=== PATIENT | female | born 1940 | race Caucasian/White ===

== ENCOUNTER 2017-06-06 12:54 | Day surgery (SDC) | payer MEDICARE ==
[2017-05-31 07:07] VITALS: BP 150/81
[~2017-06-06] VITALS: Ht 157.5 cm; Wt 80.4 kg
[~2017-06-06 12:54] MED LIST: ASPI-515 PO; ATOR40TA PO; BUPIVACAINE/PF 0.5% ONE; CA C1TAB28 PO; LISI-170 PO; LISI1TAB7 PO; LOVA40TA2 PO; OMEG1CAP23 PO; OMEP-110 PO; POLY454P3 PO; SUCR1TAB PO
[2017-06-06] MEDS ORDERED: LACTATED RINGERS 1,000 ML IV SCH (13:13)
[2017-06-06] MEDS ORDERED: LIDOCAINE 1%, 2ML SQ PRN (13:30)
[2017-06-06] MEDS ORDERED: SILVER NITRATE STICK TP ONE (13:36)
[2017-06-06] MEDS ORDERED: BUPIVACAINE/PF 0.25% ONE (13:36)
[2017-06-06] MEDS ORDERED: EPINEPHRINE 1 MG/ML, 1ML ONE (13:36)
[2017-06-06] MEDS ORDERED: FENTANYL PF 250 MCG/5ML ONE (14:49)
[2017-06-06] MEDS ORDERED: DEXAMETHASONE 4 MG/ML, 1ML ONE (14:53)
[2017-06-06] MEDS ORDERED: ONDANSETRON 2MG/ML, 2ML ONE (14:53)
[2017-06-06] MEDS ORDERED: CEFAZOLIN 1,000 MG ONE (14:53)
[2017-06-06] MEDS ORDERED: PROPOFOL 10 MG/ML, 20ML ONE (14:53)
[2017-06-06] MEDS ORDERED: PROPOFOL 50 ML ONE (14:57)
[2017-06-06] MEDS ORDERED: HYDROmorphone 1 MG/ML, 1ML IV PRN (15:00)
[2017-06-06] MEDS ORDERED: PROMETHAZINE 25 MG/ML, 1ML IV PRN (15:00)
[2017-06-06] MEDS ORDERED: ONDANSETRON 2MG/ML, 2ML IVPush PRN (15:00)
[2017-06-06] MEDS ORDERED: FENTANYL PF 100 MCG/2ML IV PRN (15:00)
[2017-06-06] MEDS ORDERED: OXYcodone 5 MG/5 ML ORAL.SOL UDC PO PRN (15:00)
[2017-06-06] MEDS ORDERED: HYDROcodone/APAP 7.5-325MG/15ML UDC PO PRN (15:00)
[2017-06-06] MEDS ORDERED: ACETAMINOPHEN 325 MG TABLET PO PRN (15:00)
[2017-06-06] MEDS ORDERED: BUPIVACAINE/PF-EPI 0.25% 1:200K IM ONE (15:13)
[2017-06-06] MEDS ORDERED: ACETAMINOPHEN 650 MG/20.3 ML UDC ONE (15:49)
[2017-06-06] MEDS ORDERED: OXYcodone 5 MG/5 ML ORAL.SOL UDC ONE (15:50)
[2017-06-06] MEDS ORDERED: ONDANSETRON 2MG/ML, 2ML IV PRN (17:30)
[2017-06-06] MEDS ORDERED: OXYcodone/APAP 5/325MG TABLET PO PRN (17:30)
[2017-06-06] MEDS ORDERED: morphine SULFATE 10 MG/ML, 1ML IV PRN (17:30)
[2017-06-06 19:26] VITALS: BP 145/86
[2017-06-06] MEDS ORDERED: IBUPROFEN 600 MG TABLET PO SCH (21:00)
[2017-06-06] MEDS ORDERED: ATORVASTATIN 40 MG TABLET PO SCH (21:00)
[2017-06-07] MEDS ORDERED: ASPIRIN 81 MG TABLET EC PO SCH (06:00)
[2017-06-07] MEDS ORDERED: OMEPRAZOLE 20 MG CAPSULE.DR PO SCH (07:30)
[2017-06-07] MEDS ORDERED: MULTIVITAMIN 1 TABLET PO SCH (09:00)
[2017-06-07] MEDS ORDERED: OMEGA-3/FISH OIL CAPSULE PO SCH (09:00)
[2017-06-07] MEDS ORDERED: LISINOPRIL 20 MG TABLET PO SCH (09:00)
[2017-06-07] MEDS ORDERED: HYDROCHLOROTHIAZIDE 25 MG TABLET PO SCH (09:00)
[2017-06-07] MEDS ORDERED: CHOLECALCIFEROL 1,000 UNIT TABLET PO SCH (09:00)
== END 2017-06-06 19:40 | disposition home or self-care (01) ==
LOC: OUT 12:54 → 4NOR 17:16 → OUT 19:40
PROVIDERS: ATTEND Obstetrics & Gynecology
DX: N84.0 Polyp of corpus uteri (principal); N95.0 Postmenopausal bleeding; I10 Essential (primary) hypertension
CPT/HCPCS: 58558; 88305; J0171; J0690; J1100; J2405; J2704; J3010; J3490

== ENCOUNTER 2018-06-26 07:49 | Emergency (ER) | payer MEDICARE ==
[~2018-06-26] VITALS: Ht 157.5 cm; Wt 77.8 kg
[~2018-06-26 07:49] MED LIST changes: -BUPIVACAINE/PF 0.5% ONE
[2018-06-26] MEDS ORDERED: MORPHINE SULFATE 4 MG/ML, 1ML ONE (09:40)
[2018-06-26] MEDS ORDERED: ONDANSETRON 2MG/ML, 2ML ONE (09:40)
[2018-06-26] MEDS ORDERED: SODIUM CHLORIDE FLUSH 10ML SYR IVF ONE (10:00)
[2018-06-26] MEDS ORDERED: ONDANSETRON 2MG/ML, 2ML IVPush ONE (10:00)
[2018-06-26] MEDS ORDERED: MORPHINE SULFATE 4 MG/ML, 1ML IVPush PRN (10:00)
[2018-06-26 10:17] LABS: BASOPHILS # (AUTO) 0.02 x10^3/uL (0-0.1); BASOPHILS % (AUTO) 0 % (0-1); EOSINOPHILS # (AUTO) 0.08 x10^3/uL (0-0.4); EOSINOPHILS % (AUTO) 1 % (1-7); LYMPHOCYTES # (AUTO) 1.84 x10^3/uL (1-3.4); LYMPHOCYTES % (AUTO) 30 % (22-44); MD NO; MEAN CORPUSCULAR HEMOGLOBIN 29.1 pg (27.0-34.8); MEAN CORPUSCULAR HGB CONC 33.3 g/dL (32.4-35.8); MEAN CORPUSCULAR VOLUME 87.3 fL (80-100); MEAN PLATELET VOLUME 7.1 fL (7.4-10.4); MONOCYTES # (AUTO) 0.59 x10^3/uL (0.2-0.8); MONOCYTES % (AUTO) 10 % (2-9); NEUTROPHILS % (AUTO) 59 % (42-75); PLATELET COUNT 313 x10^3/uL (130-400); RED BLOOD COUNT 5.25 x10^6/uL (3.82-5.3)
[2018-06-26 10:24] LABS: CHLORIDE 107 mmol/L (98-107)
[2018-06-26 10:28] LABS: ALBUMIN 3.7 g/dL (3.4-5.0); ANION GAP 6 mmol/L (5-15); CALCIUM 8.4 mg/dL (8.5-10.1)
[2018-06-26 10:35] LABS: ALANINE AMINOTRANSFERASE 27 U/L (12-78); ALKALINE PHOSPHATASE 81 U/L (45-117); BILIRUBIN,TOTAL 0.5 mg/dL (0.2-1.0); CREATININE 0.89 mg/dL (0.55-1.02); TOTAL PROTEIN 7.4 g/dL (6.4-8.2); TROPONIN I < 0.015 ng/mL (0.000-0.045)
[2018-06-26 10:45] LABS: MICROSCOPIC AUTO
[2018-06-26 10:49] LABS: CULTURE INDICATED? NO
[2018-06-26] MEDS ORDERED: MAALOX/HYOSCYAMINE/LIDOCAINE 45 ML BTL PO ONE (11:00)
[2018-06-26] MEDS ORDERED: MAALOX/HYOSCYAMINE/LIDOCAINE 45 ML BTL ONE (11:01)
[2018-06-26] MEDS ORDERED: OMNIPAQUE 350 MG/ML, 100ML BOTTLE ONE (13:45)
[2018-06-26 14:48] VITALS: BP 135/80
== END 2018-06-26 15:09 | disposition home or self-care (01) ==
LOC: ED 10:25
DX: M25.551 Pain in right hip (principal); R10.9 Unspecified abdominal pain; R07.9 Chest pain, unspecified; I10 Essential (primary) hypertension; K21.9 Gastro-esophageal reflux disease without esophagitis; E78.5 Hyperlipidemia, unspecified; Z87.448 Personal history of other diseases of urinary system; Z87.891 Personal history of nicotine dependence
CPT/HCPCS: 36415; 71045; 74177; 80053; 81001; 83605; 83690; 84484; 85025; 93005; 96374; 96375; 99284; J2405; Q9967

== ENCOUNTER 2019-01-22 06:50 | Emergency (ER) | payer MEDICARE ==
[~2019-01-22] VITALS: Ht 157.5 cm; Wt 78.0 kg
--- NOTE | 2019-01-22 07:27 | NUR ---
PT PRESENTS WITH LEFT NECK AND SHOULDER PAIN THAT IS A 5/10 AND MUSCLE SPASMS. PT DENIES CHEST PAIN, RADIATING PAIN, OR NUMBNESS. PT REPORTS SHE ALSO THINKS SHE HAS A UTI. UA WILL BE OBTAINED. BIBI. WANG. CALL LIGHT WITHIN REACH.
[2019-01-22] MEDS ORDERED: ONDANSETRON ODT 4 MG PO ONE (07:30)
[2019-01-22] MEDS ORDERED: OXYcodone/APAP 5/325MG TABLET PO ONE (07:30)
[2019-01-22] MEDS ORDERED: ONDANSETRON ODT 4 MG ONE (07:47)
[2019-01-22] MEDS ORDERED: OXYcodone/APAP 5/325MG TABLET ONE (07:47)
--- NOTE | 2019-01-22 08:08 | NUR ---
PT IS INTERMITTENTLY DESATING DOWN TO APPROX 87%. I PLACED PT ON 1 L ON NC, HER O2 SAT IS STABLE AND IN THE HIGH 90'S. I IFORMED ELLIOTT THAT PT IS REQUIRING OXYGEN AND ALSO THAT SHE "THINKS I HAVE A UTI BECAUSE IT ZAPATA WHEN I PEE". HE IS PLACING ORDERS.
--- NOTE | 2019-01-22 08:12 | NUR ---
DAUGHTER MICHEAL AT BEDSIDE. PT REPORTS HER PAIN IS 3/10 AND "HAS IMPROVED".
[2019-01-22 08:51] LABS: MICROSCOPIC AUTO
[2019-01-22 08:53] LABS: CULTURE INDICATED? YES
[2019-01-22 09:28] VITALS: BP 112/62
--- NOTE | 2019-01-22 09:29 | NUR ---
PT RESTING IN BED AND DENIES ANY NEEDS AT THIS TIME. VSS. NAD. CALL LIGHT WITHIN REACH.
--- NOTE | 2019-01-22 09:32 | NUR ---
AWAITING MD RECHECK. PT AWARE.
--- NOTE | 2019-01-22 09:53 | NUR ---
Patient given discharge instructions and they have confirmed that they understand the instructions. Patient ambulatory with steady gait. Pain free at time of d/c. Daughter here to drive her home.
== END 2019-01-22 09:55 | disposition home or self-care (01) ==
LOC: ED 09:19
DX: M54.12 Radiculopathy, cervical region (principal); K21.9 Gastro-esophageal reflux disease without esophagitis; E78.5 Hyperlipidemia, unspecified; I10 Essential (primary) hypertension
CPT/HCPCS: 71046; 72125; 81001; 87086; 93005; 99284; Q0162

== ENCOUNTER → 2020-03-04 | Outpatient (CLI) | payer MEDICARE ==
[~2020-03-04] MED LIST changes: +LISI1TAB20 PO; -LISI1TAB7 PO; +REGADENOSON 0.4 MG/5 ML SYRINGE ONE
== END | disposition home or self-care (01) ==
LOC: RAD 11:50
PROVIDERS: ATTEND Family Medicine
DX: I25.9 Chronic ischemic heart disease, unspecified (principal); R06.02 Shortness of breath
CPT/HCPCS: 78452; 93017; A9502; J2785

== ENCOUNTER 2020-03-12 13:19 | Outpatient (CLI) | payer MEDICARE ==
[~2020-03-12 13:19] MED LIST changes: -REGADENOSON 0.4 MG/5 ML SYRINGE ONE
[2020-03-12] MEDS ORDERED: MULT-516 PO (14:08)
[2020-03-12] MEDS ORDERED: DICY20TA3 PO (14:08)
[2020-03-12] MEDS ORDERED: SUCR1TAB33 PO (14:08)
[2020-03-12] MEDS ORDERED: ASPI-496 PO (14:08)
[2020-03-12 14:39] LABS: BASOPHILS # (AUTO) 0.04 x10^3/uL (0-0.1); BASOPHILS % (AUTO) 1 % (0-1); EOSINOPHILS # (AUTO) 0.18 x10^3/uL (0-0.4); EOSINOPHILS % (AUTO) 3 % (1-7); LYMPHOCYTES # (AUTO) 2.08 x10^3/uL (1-3.4); LYMPHOCYTES % (AUTO) 28 % (22-44); MD NO; MEAN CORPUSCULAR HEMOGLOBIN 29.2 pg (27.0-34.8); MEAN CORPUSCULAR HGB CONC 32.4 g/dL (32.4-35.8); MEAN CORPUSCULAR VOLUME 89.9 fL (80-100); MEAN PLATELET VOLUME 7.4 fL (7.4-10.4); MONOCYTES # (AUTO) 0.67 x10^3/uL (0.2-0.8); MONOCYTES % (AUTO) 9 % (2-9); NEUTROPHILS % (AUTO) 60 % (42-75); PLATELET COUNT 278 x10^3/uL (130-400); RED BLOOD COUNT 5.31 x10^6/uL (3.82-5.3); RED CELL DISTRIBUTION WIDTH 13.9 % (9.6-15.2)
[2020-03-12 14:41] LABS: ALANINE AMINOTRANSFERASE 28 U/L (12-78); ALBUMIN 3.7 g/dL (3.4-5.0); ANION GAP 3 mmol/L (5-15); CALCIUM 9.1 mg/dL (8.5-10.1); CHLORIDE 107 mmol/L (98-107); CREATININE 1.06 mg/dL (0.55-1.02)
[2020-03-12 14:44] LABS: ALKALINE PHOSPHATASE 92 U/L (45-117); BILIRUBIN,TOTAL 0.5 mg/dL (0.2-1.0); TOTAL PROTEIN 7.4 g/dL (6.4-8.2)
== END 2020-03-12 23:59 | disposition home or self-care (01) ==
LOC: STAR 13:19
PROVIDERS: ATTEND Obstetrics & Gynecology
DX: Z01.818 Encounter for other preprocedural examination (principal); Z11.59 Encounter for screening for other viral diseases
CPT/HCPCS: 36415; 71046; 80053; 85025; 87635; 93005